=== PATIENT | female | born 1980 | race Caucasian/White ===

== ENCOUNTER 2024-09-26 20:22 | Emergency (ER) | payer OTHER ==
[~2024-09-26] VITALS: Ht 165.1 cm; Wt 90.8 kg
[2024-09-26] MEDS ORDERED: LOSARTAN POTASS25 M1 PO (20:31)
[2024-09-26] MEDS ORDERED: CYMBALTA20 M1 PO (20:31)
[2024-09-26] MEDS ORDERED: ROSUVASTATIN CAL5 MG PO (20:31)
[2024-09-26] MEDS ORDERED: CYCLOBENZAPRINE10 MG PO (20:31)
[2024-09-26] MEDS ORDERED: HYDROXYZINE10 MG PO (20:32)
[2024-09-26] MEDS ORDERED: Ketorolac Tromethamine 30 MG/ML VIAL IM ONE (20:40)
== END 2024-09-26 22:20 | disposition home or self-care (01) ==
LOC: ED 20:22
DX: S60.221A Contusion of right hand, initial encounter (principal); M54.6 Pain in thoracic spine; V43.62XA Car passenger injured in collision with other type car in traffic accident, initial encounter; Y93.89 Activity, other specified; Y92.488 Other paved roadways as the place of occurrence of the external cause; Y99.8 Other external cause status